=== PATIENT | female | born 1960 | race Caucasian/White ===

== ENCOUNTER → 2016-07-09 | Outpatient (CLI) | payer BC ==
--- NOTE | 2016-07-10 07:45 | MM ---
Reason for exam: additional evaluation requested from abnormal screening. Last mammogram was performed 1 month ago. History: Patient is postmenopausal. Family history of breast cancer in maternal aunt. Benign US breast aspiration single LT of the left breast, July 21, 2014. Benign US biopsy breast VAD LT of the left breast, July 21, 2014. Benign US right guided mammotome of the right breast, July 02, 2006. Benign US right core biopsy of the right breast, May 24, 2005. Ultrasound-guided core biopsy, May 2005. Physical Findings: Nurse did not find any significant physical abnormalities on exam. MG Work Up Mamm w CAD RT ML, CC with magnification, and ML with magnification view(s) were taken of the right breast. Prior study comparison: June 11, 2016, bilateral MG screening mammo w CAD. March 02, 2015, left breast MG diagnostic mammo LT w CAD. Finding: There are intermediate concern, suspicious coarse heterogeneous, grouped/clustered calcifications in the lower inner quadrant, posterior position of the right breast, 6cm from the nipple. These results were verbally communicated with the patient and result sheet given to the patient on 07/09/16. ASSESSMENT: Suspicious, BI-RAD 4 RECOMMENDATION: Surgical consultation and stereotactic core biopsy of the right breast. Called Dr. Pires with mammographic findings and has scheduled an appointment for the patient for 07/24/16 at 3:[address] Brown. PRELIMINARY REPORT CALLED AND FAXED TO DR. RBOWN ON 07/10/16 AT 300/TP.
== END | disposition home or self-care (01) ==
LOC: RADMAMWWP 15:30
PROVIDERS: ATTEND Obstetrics & Gynecology
DX: R92.8 Other abnormal and inconclusive findings on diagnostic imaging of breast (principal)

== ENCOUNTER → 2016-07-30 | Day surgery (SDC) | payer BC ==
[~2016-07-30] MED LIST: ALPRAZolam 0.25 MG TAB ONE; BACITRACIN OINT 1 EACH PACKET TOPICAL ONE; LIDOCAINE 1% INJ 10MG/ML (20 ML MDV) ONE; SODIUM BICARB 4% 5 ML VIAL (0.48 MEQ/ML) ONE
--- NOTE | 2016-07-30 11:04 | MM ---
EXAMINATION TYPE: MG stereo VAD BX RT DATE OF EXAM: 07/30/2016 9:03 AM COMPARISON: 07/09/2016, 06/11/2016 CLINICAL HISTORY: Request for core biopsy stereotactic calcifications right breast TECHNIQUE: Stereotactic guided core biopsy of right breast. FINDINGS: The procedure of stereotactic guided core biopsy was explained to the patient. Benefits, alternatives, and risks were discussed. An informed consent was then obtained. [facility]. Shortness pathway was chosen. Radiologist performed both the localization, and performed the remainder of the procedure. A vacuum assisted biopsy gun was used to obtain multiple core samples. The patient tolerated the procedure well without any immediate complication. The patient was kept in the radiology department for short stay after the procedure and then discharged home in stable condition. Targeted calcifications are identified in specimen mammogram. Post biopsy mammogram shows the clip to appear in satisfactory position relative to the targeted area of concern on the preprocedure images. IMPRESSION: SUCCESSFUL, UNCOMPLICATED STEREOTACTIC GUIDED CORE BIOPSY OF AREA OF CONCERN IN THE right BREAST, FULL PATHOLOGY RESULTS TO FOLLOW. 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 CALCIFICATIONS ARE IDENTIFIED. Recommendation Surgical consult of the right breast. TAD
== END ==
LOC: RADMAMWWP 06:57
PROVIDERS: ATTEND Surgery
DX: C50.911 Malignant neoplasm of unspecified site of right female breast (principal); R92.8 Other abnormal and inconclusive findings on diagnostic imaging of breast; R92.1 Mammographic calcification found on diagnostic imaging of breast
CPT/HCPCS: 88305; 88342; 19081; A4648; J2001

== ENCOUNTER → 2016-08-20 | Outpatient (CLI) | payer BC ==
--- NOTE | 2016-08-21 10:42 | BMR ---
EXAMINATION TYPE: MR breast BILAT wo/w con DATE OF EXAM: 08/20/2016 8:48 PM COMPARISON: Bilateral breast screening mammogram June 11, 2016 BI-RADS 0. Right breast diagnostic mammogram workup July 09, 2016 BI-RADS 4. Positive stereotactic guided core biopsy July 30, 2016 with invasive ductal carcinoma and ductal carcinoma in situ. HISTORY: Right Breast Biopsy with Right side Clips 3 weeks ago Hx of Right Breast Ca. Patient had his tory of left breast benign biopsy and cyst aspiration 2014. Remote right-sided benign breast biopsies . CONTRAST: Multiplanar, multisequence images of the breasts were acquired utilizing 19 mL intravenous MultiHance gadolinium contrast. TECHNIQUE: A series of fat and water weighted images in the long and short axis views of both breasts are obtained in conjunction with dynamic contrast MRI with subtraction technique. Three-dimensional and additional postprocessing imaging is created on independent workstation and reviewed during offi cial interpretation of this study. FINDINGS: There is scattered fibroglandular tissue redemonstrated throughout both breasts. T2-weighte d images show some tiny simple appearing cysts bilaterally, left greater than right. There is mild to moderate slightly asymmetric background enhancement more prominent in left breast versus right breas t. Corresponding to mammogram in the posterior tissue inferiorly near the midline roughly 6:00 positi on there is well-circumscribed rim enhancing nodule. Approximately 1.5 cm immediately anterior to th is there is artifact from biopsy clip identified. No suspicious mass or nonmass enhancement is seen t o correspond to the grouped calcifications on mammogram. There is additional artifact from prior biopsies in the medial anterior right breast. Some scattered foci of enhancement bilaterally are felt to reflect adenosis slightly more prominent in left breast v ersus right breast. There is artifact from biopsy clip anteriorly in the left breast near level of th e nipple noted. No pathologic enhancement is identified. No suspicious skin thickening is seen. No co ncerning axillary adenopathy is seen bilaterally. Benign-appearing axillary lymph nodes are present b ilaterally. No suspicious intramammary adenopathy is identified. A small to moderate size hiatal hernia is incidentally noted. IMPRESSION: No MRI evidence for invasive malignancy in either breast. Artifact from recent biopsy pro [place] carcinoma noted. Rim-enhancing nodule is redemonstrated posterior to this. BI-RADS 6 biopsy-proven cancer right breast. BI-RADS 2 benign findings left breast. Recommendation: Appropriate surgical management for biopsy-proven carcinoma right breast.
== END | disposition home or self-care (01) ==
LOC: RADMRIMAIN 19:29
PROVIDERS: ATTEND Surgery
DX: C50.919 Malignant neoplasm of unspecified site of unspecified female breast (principal)
CPT/HCPCS: 77059; 0159T; A9577

== ENCOUNTER 2016-09-12 10:04 | Day surgery (SDC) | payer BC ==
--- NOTE | 2016-09-06 09:34 | HP ---
DATE OF ADMISSION: 09/12/2016 CHIEF COMPLAINT: Right breast cancer. HISTORY OF PRESENT ILLNESS: Patient is a 56-year-old female who underwent a recent screening mammogram and was found to have a 9 mm lesion associated with 3.8 cm of pleomorphic calcifications. She underwent a stereotactic core biopsy which showed a triple-negative cancer with associated DCIS. Subsequent MRI did not show any residual invasive disease. She had recent BRCA testing because of the triple-negative nature, and that was normal. The patient is interested in breast conservation. She has a family history of breast cancer in an aunt. She was unable to feel a mass. She has had no pain associated with this. PAST MEDICAL HISTORY: 1. Thyroid nodule. 2. Irritable bowel. 3. Hyperlipidemia. 4. Hypothyroidism. PAST SURGICAL HISTORY: 1. Thyroidectomy. 2. Tubal ligation. 3. Carpal tunnel. 4. D&C. 5. Colonoscopy. 6. Ovarian cyst. 7. Tubal ligation reversal. MEDICATIONS: 1. Synthroid. 2. Zocor. 3. Bentyl. ALLERGIES: DENIES. PHYSICAL EXAM: HEENT is normocephalic. Sclerae anicteric. CHEST: No deformities. Right breast without mass or adenopathy, although recent scar noted. Left breast without mass or adenopathy. ABDOMEN: Soft, nontender, nondistended. NEURO: Alert and oriented x3. IMPRESSION: A 56-year-old female with right breast cancer. PLAN: Will proceed with right breast lumpectomy with sentinel lymph node biopsy and wire localization. Margin probe will be utilized as well. Two wires may be required in this case, and this will be discussed with Radiology preoperatively. Risks of bleeding, infection, dimpling, numbness, potential need for additional surgeries including axillary node dissection and/or mastectomy were discussed. Lymphedema and seroma formation were also discussed. The patient is a [employer] and has brought a form into the office today stating that. She vehemently refuses any blood-related products. Associated risk of as it pertains to the inability to provide adequate resuscitation with blood products was discussed, and the patient is aware of this risk.
[2016-09-11 08:54] VITALS: BMI 34.4
[~2016-09-12 10:04] MED LIST changes: -ALPRAZolam 0.25 MG TAB ONE; +ALPRAZolam 0.5 MG TAB PO PRN; -BACITRACIN OINT 1 EACH PACKET TOPICAL ONE; +DEXAMETHASONE SOD PHOSPHATE 10 MG/ML 1 ML VIAL IV ONE; +HEPARIN SODIUM,PORCINE 5,000 UNIT/ML 1 ML VIAL SQ ONE; +LIDOCAINE 1% 20 ML VIAL (10MG/ML) FOR IV START INTRADERMA PRN; -LIDOCAINE 1% INJ 10MG/ML (20 ML MDV) ONE; +MIDAZOLAM 2 MG/2 ML VIAL IV PRN; +Pre Op ABX Message 1 EACH MISC MISCELLANE ONE; +SCOPOLAMINE 1.5MG/72HR PATCH TRANSDERM ONE; -SODIUM BICARB 4% 5 ML VIAL (0.48 MEQ/ML) ONE
[2016-09-12] MEDS: LACTATED RINGERS 1,000 ML IV SCH ×2 (10:38→17:16)
[2016-09-12 11:08] VITALS: RESP 16
[2016-09-12] MEDS ORDERED: LIDOCAINE 1% INJ 10MG/ML (20 ML MDV) SQ ONE (11:20)
[2016-09-12] MEDS ORDERED: SODIUM BICARB 4% 5 ML VIAL (0.48 MEQ/ML) MISCELLANE ONE (11:20)
--- NOTE | 2016-09-12 12:08 | NM ---
EXAMINATION TYPE: NM sentinel node injection DATE OF EXAM: 09/12/2016 12:02 PM COMPARISON: NONE HISTORY: Right-sided breast cancer. TECHNIQUE AND FINDINGS: The procedure of sentinel lymph node injection was explained to the patient. The benefits, alternatives, and risks were discussed. An informed consent was then obtained. Overlying skin is cleaned with sterile alcohol. Lidocaine buffered with bicarbonate was used as anes thetic into the skin and subcutaneous tissue surrounding the nipple. Following this, 546 uCi Tc 99m Filtered Sulfur Colloid was injected into 4 equivalent doses at 12, 3, 6, and 9:00 position surroundi ng the right nipple intradermally. The injection sites were massaged by arrt technologist for 10 minutes after injection. T he patient tolerated the procedure well without any immediate complication. The patient was kept in the radiology department for short stay after the procedure and then taken to surgery for surgical pr ocedure what is presumed intraoperative gamma probe will be used for sentinel lymph node detection. IMPRESSION: Right breast radiotracer injection for sentinel node localization as above.
[2016-09-12] MEDS: ONDANSETRON 4 MG/2 ML VIAL IVP ONE ×2 (12:11→15:21)
[2016-09-12] MEDS ORDERED: PROPOFOL 10 MG/ML 20 ML VIAL IV ONE (12:21)
[2016-09-12] MEDS ORDERED: MIDAZOLAM 2 MG/2 ML VIAL ONE (12:21)
[2016-09-12] MEDS ORDERED: ePHEDrine 50 MG/ML 1 ML AMP ONE (12:21)
[2016-09-12] MEDS ORDERED: fentaNYL (PF) 50 MCG/ML 2 ML AMP ONE (12:21)
[2016-09-12] MEDS ORDERED: SUCCINYLCHOLINE CHLORIDE 100 MG/5 ML SYR IV ONE (12:21)
[2016-09-12] MEDS ORDERED: LIDOCAINE 1% INJ 10MG/ML (20 ML MDV) ONE (12:21)
[2016-09-12] MEDS ORDERED: SODIUM CHLORIDE 0.9% 50 ML with ceFAZolin 2,000 MG IV ONE ×2 (12:36)
[2016-09-12] MEDS ORDERED: METHYLENE BLUE 50 MG/10 ML AMPUL MISCELLANE ONE (12:45)
[2016-09-12] MEDS ORDERED: NALOXONE 0.4 MG/ML 1 ML VIAL IV PRN (14:58)
[2016-09-12] MEDS ORDERED: HYDROcodone/APAP 5-325MG 1 EACH TAB PO PRN (14:58)
--- NOTE | 2016-09-12 15:01 | P.PCN ---
Date of Procedure: 09/12/16 Procedure(s) Performed: PREOPERATIVE DIAGNOSIS: Right breast cancer POSTOPERATIVE DIAGNOSIS: Same PROCEDURE: Right Breast wire localization lumpectomy with sentinel lymph node biopsy and margin probe device SURGEON: Stephanie EBL: Minimal ANESTHESIA: General COMPLICATIONS: None OPERATIVE PROCEDURE: Patient was placed on the operating room table in the supine position. 2 mL of methylene blue was injected into the subareolar space. The breast was then massaged for 5 minutes. The right axilla was addressed at that time. The hot spot in the right axilla was identified. A small curvilinear incision was made using the scalpel. Dissection down through the subcutaneous tissues took place using electrocautery. Using the neoprobe I identified a total of 3 sentinel lymph nodes. 2 of these were blue in color. These were all removed and sent to pathology for close examination. Frozen sections from these lymph nodes were negative for metastatic disease. No bleeding was seen. The subcutaneous tissues were closed using 3-0 Vicryl sutures. The skin was closed using 4-0 Monocryl sutures. The wire entrance site was then addressed. The patient had 2 wires present entering the breast at the 3:00 location directed laterally. A curvilinear incision was made at the 3:00 location. Dissection through the subcutaneous tissues took place removing the breast tissue around the 2 wires. The specimen was marked with 2 sutures short superior and long lateral. I then brooke on the specimen with a black marker 6 different sides. The margin probe device was then utilized. Of the 6 margins all 6 showed some positivity with exception of the deep margin. These 5 margins were then reexcised and sent separately in formalin. The new margin on these 5 new specimens were colored with the appropriate margin color on the new margin side. The initial lumpectomy specimen was also painted using the appropriate color. The clip set up mechanic stamping machines was used to thor the lumpectomy site circumferentially. The clip was confirmed to be within the lumpectomy specimen by radiology. The subcutaneous tissues were closed using 3-0 Vicryl sutures. The skin was closed using a running 4-0 Monocryl stitch. Steri-Strips and sterile dressings were applied. DISPOSITION: Stable to recovery room
[2016-09-12 15:13] VITALS: TEMP 97.6
[2016-09-12] MEDS: HYDROmorphone 1 MG/ML 1 ML SYRINGE IVP PRN ×2 (15:21→15:27)
[2016-09-12] MEDS ORDERED: HYDROcodone/APAP 5-325MG 1 EACH TAB PO ONE (16:28)
[2016-09-12 17:54] VITALS: BP 117/77; PULSE 79
--- NOTE | 2016-09-13 06:38 | MM ---
EXAMINATION TYPE: MG pre op needle loc RT, MG surgical specimen RT DATE OF EXAM: 09/12/2016 12:16 PM COMPARISON: Prior bilateral breast MRI August 20, 2016. Prior mammograms July 30, 2016 and older studies. CLINICAL HISTORY: Biopsy-proven right-sided breast cancer. TECHNIQUE: Needle localization with wire placement and surgical excision of area of concern in the right breast. FINDINGS: The procedure of needle localization with wire placement and than surgical excision was explained to the patient. Benefits, alternatives, and risks were discussed. An informed consent was then obtained. The shortest pathway for procedure was chosen. Shortest pathway was inferior or medial approach. Bracket technique was chosen from medial approach. The overlying skin was prepped and draped in usual sterile fashion. Lidocaine buffered with bicarbonate was used as anesthetic into the skin and subcutaneous tissue up to the level of area of concern. Two 7 cm needle were used. It were placed via a medial approach under mammographic guidance. Subsequent 90 degrees mammogram show the needle to be in satisfactory position relative to the targeted area. Anterior wire was at level of anterior calcifications. Posterior wire was posterior to biopsy clip and enhancing nodule on MRI near posterior aspect of calcifications, tip could not be identified despite multiple attempts at repositioning patient. At this point, wire was placed and the needle was withdrawn. The wire was fixed to patient's skin. Images were marked for surgeon. The patient tolerated the procedure well without any immediate complication. The patient was kept in the radiology department for short stay after the procedure and then taken to surgery for surgical excision. Targeted calcifications , biopsy clip, and wires are identified in specimen mammogram. The patient was kept in hospital for short stay after the procedure and then discharged home in stable condition. IMPRESSION: Successful, uncomplicated needle localization with [wire] placement and surgical excision of suspicious group of calcifications in the right breast , full pathology results to follow. Pathology Results: Malignant A. LYMPH NODE, RIGHT, SENTINEL NODE BIOPSY #1: LYMPH NODE NEGATIVE FOR METASTASIS (CYTOKERATIN 7 AND LOLY IMMUNOSTAINS ARE CONFIRMATORY). B. LYMPH NODE, RIGHT, SENTINEL NODE BIOPSY #2: LYMPH NODE NEGATIVE FOR METASTASIS (CYTOKERATIN 7 AND LOLY IMMUNOSTAINS ARE CONFIRMATORY). C. LYMPH NODE, RIGHT, SENTINEL NODE BIOPSY #3: LYMPH NODE NEGATIVE FOR METASTASIS (CYTOKERATIN 7 AND LOLY IMMUNOSTAINS ARE CONFIRMATORY). D. BREAST, RIGHT, IMAGE GUIDED LOCALIZATION AND BIOPSY: HIGH GRADE DUCT CARCINOMA IN SITU WITH COMEDO NECROSIS AND MICROINVASION. BIOPSY SITE CHANGE/SCAR INVOLVING THE GREEN INKED (INFERIOR) MARGIN OF RESECTION. FIBROCYSTIC CHANGE (STROMAL FIBROSIS, APOCRINE METAPLASIA, CYST FORMATION, ADENOSIS, COLUMNAR CELL CHANGE AND DUCT HYPERPLASIA). E. BREAST, RIGHT ADDITIONAL SUPERIOR MARGIN RESECTION: FIBROCYSTIC CHANGE ( STROMAL FIBROSIS, CYST FORMATION, ADENOSIS, AND MILD DUCT HYPERPLASIA). F. BREAST, RIGHT, ADDITIONAL LATERAL MARGIN RESECTION: FOCAL FIBROSIS WITH FIBROPLASIA SUGGESTIVE OF BIOPSY SITE CHANGE. FIBROCYSTIC CHANGE (STROMAL FIBROSIS, CYST FORMATION, APOCRINE METAPLASIA, ADENOSIS, COLUMNAR CELL CHANGE AND DUCT HYPERPLASIA). FIBROADENOMATOUS HYPERPLASIA/FIBROADENOMA FORMATION. G. BREAST, RIGHT, ADDITIONAL INFERIOR MARGIN RESECTION: INVASIVE DUCTAL CARCINOMA AND DUCT CARCINOMA IN SITU. BIOPSY SITE CHANGE. H. BREAST, RIGHT, ADDITIONAL ANTERIOR MARGIN RESECTION: HIGH GRADE DUCT CARCINOMA IN SITU WITH COMEDO NECROSIS. FIBROCYSTIC CHANGE (STROMAL FIBROSIS, CYST FORMATION, ADENOSIS, APOCRINE METAPLASIA AND DUCT HYPERPLASIA). SCLEROSING LESION. I. BREAST, RIGHT, ADDITIONAL MEDIAL MARGIN RESECTION: BENIGN BREAST WITH FOCAL FIBROSIS AND PROMINENT BACKGROUND ADIPOSE TISSUE AND FOCAL SKELETAL MUSCLE. Recommendation Surgical consult of the right breast. MTDD
== END 2016-09-12 17:35 | disposition home or self-care (01) ==
LOC: OR 10:04
PROVIDERS: ATTEND Surgery
DX: C50.911 Malignant neoplasm of unspecified site of right female breast (principal); D05.11 Intraductal carcinoma in situ of right breast; N64.1 Fat necrosis of breast; N60.11 Diffuse cystic mastopathy of right breast; N60.81 Other benign mammary dysplasias of right breast; N60.21 Fibroadenosis of right breast; N60.91 Unspecified benign mammary dysplasia of right breast; E04.1 Nontoxic single thyroid nodule; E78.5 Hyperlipidemia, unspecified; E03.9 Hypothyroidism, unspecified; Z79.1 Long term (current) use of non-steroidal anti-inflammatories (NSAID); Z79.899 Other long term (current) drug therapy
CPT/HCPCS: 38525; 19301; 88342; 88331; 88307; 88341; 76098; 19281; 38792; A9541; J2250; J1644; J1100; J2405; J2001; J3010; J1170; J0690; J0330; J2704; Q9968

== ENCOUNTER 2016-10-18 09:59 | Day surgery (SDC) | payer BC ==
--- NOTE | 2016-10-02 10:11 | HP ---
DATE OF ADMISSION: 10/18/2016 CHIEF COMPLAINT: Right breast cancer. HISTORY OF PRESENT ILLNESS: The patient is a 56-year-old female who underwent a recent right breast lumpectomy. The patient's pathologic findings revealed negative adenopathy, however, she does have multifocal disease. Patient has done well postoperatively. She and I discussed the postoperative pathologic findings in the office today. PAST MEDICAL HISTORY: Thyroid nodule, irritable bowel syndrome, hyperlipidemia, hypothyroidism. PAST SURGICAL HISTORY: Thyroid, tubal ligation, carpal tunnel D&C, colonoscopy, ovarian cyst, tubal ligation reversal. MEDICATIONS: Synthroid, Zocor, Bentyl. ALLERGIES: None. PHYSICAL EXAM: HEENT is normocephalic. Sclerae nonicteric. Right breast with recent scar, healing nicely mild edema. Mild tenderness. Small seroma in the right axilla. Left breast without masses or adenopathy. Abdomen is soft, nontender, nondistended. IMPRESSION: A 56-year-old female with right breast cancer. PLAN: Will proceed with right simple mastectomy on 10/18/2016. The risks of bleeding, infection seroma formation, flap ischemia were discussed. She understands and wishes to proceed.
[2016-10-17 09:09] VITALS: BMI 34.9
[~2016-10-18 09:59] MED LIST changes: -ALPRAZolam 0.5 MG TAB PO PRN; -LIDOCAINE 1% 20 ML VIAL (10MG/ML) FOR IV START INTRADERMA PRN; +ONDANSETRON 4 MG/2 ML VIAL IVP ONE
[2016-10-18] MEDS ORDERED: LACTATED RINGERS 1,000 ML IV ONE (10:29)
[2016-10-18] MEDS ORDERED: LIDOCAINE 1% 20 ML VIAL (10MG/ML) FOR IV START INTRADERMA ONE (10:30)
[2016-10-18] MEDS ORDERED: PROPOFOL 10 MG/ML 20 ML VIAL IV ONE (11:51)
[2016-10-18] MEDS ORDERED: fentaNYL (PF) 50 MCG/ML 2 ML AMP ONE (11:51)
[2016-10-18] MEDS ORDERED: MIDAZOLAM 2 MG/2 ML VIAL ONE (11:51)
[2016-10-18] MEDS ORDERED: SUCCINYLCHOLINE CHLORIDE 100 MG/5 ML SYR IV ONE (11:51)
[2016-10-18] MEDS ORDERED: LIDOCAINE 1% INJ 10MG/ML (20 ML MDV) ONE (11:51)
[2016-10-18] MEDS ORDERED: GLYCOPYRROLATE 0.2 MG/ML 2 ML VIAL ONE (11:51)
[2016-10-18] MEDS ORDERED: SODIUM CHLORIDE 0.9% 100 ML with ceFAZolin 2,000 MG IV ONE ×2 (12:11)
[2016-10-18] MEDS ORDERED: SODIUM CHLORIDE 0.9% 1,000 ML IV ONE (12:39)
[2016-10-18] MEDS: HYDROmorphone 1 MG/ML 1 ML SYRINGE IVP PRN ×4 (14:10→14:36)
[2016-10-18] MEDS ORDERED: KETOROLAC 30 MG/ML 1 ML VIAL IVP ONE (14:18)
[2016-10-18] MEDS ORDERED: NALOXONE 0.4 MG/ML 1 ML VIAL IV PRN (14:22)
[2016-10-18] MEDS ORDERED: traMADol 50 MG TAB PO PRN (14:22)
[2016-10-18] MEDS ORDERED: HYDROmorphone 1 MG/ML 1 ML SYRINGE IVP PRN (14:22)
[2016-10-18] MEDS ORDERED: ONDANSETRON 4 MG/2 ML VIAL IVP PRN (14:22)
--- NOTE | 2016-10-18 14:31 | P.PCN ---
Date of Procedure: 10/18/16 Procedure(s) Performed: PREOPERATIVE DIAGNOSIS: Right breast cancer POSTOPERATIVE DIAGNOSIS: Same PROCEDURE: Right simple mastectomy SURGEON: Stephanie EBL: 30 mL ANESTHESIA: General COMPLICATIONS: None OPERATIVE PROCEDURE: Patient was placed in the operating table in the supine position. The patient was placed under general anesthesia. The chest was prepped and draped in usual sterile fashion. The skin marker was used to delineate our anticipated incision sites. Incision was a horizontally fashioned elliptical type incision. The superior flap was first addressed. The incision was made using the scalpel. Flaps were raised beneath the skin layer using electrocautery. This took place all the way to the chest wall. Inferior flap was then elevated in a similar fashion. Care was taken to avoid creating too thin of a flap and avoiding ischemia. Once the chest wall was reached the breast was elevated off of the underlying pectoralis muscle using electrocautery. Small vessels were ligated using the Ligaclip. The dissection took place all the way to the latissimus. The specimen was sent to pathology for close examination. The lumpectomy cavity was not entered during the procedure. The subcutaneous tissues were closed using 3-0 Vicryl sutures. Prior to this a channel drain was placed exiting inferiorly. This is sutured to the skin using a 3-0 silk stitch. The skin was then closed using a running 4 -0 Monocryl stitch. Dermabond tape was then utilized along the entire length of the incision. DISPOSITION: Stable to recovery room
[2016-10-18] MEDS ORDERED: IV FLUID CONTINUATION 1,000 ML IV ONE (16:09)
[2016-10-18] MEDS: LACTATED RINGERS 1,000 ML IV SCH (17:31)
[2016-10-18] MEDS: HEPARIN SODIUM,PORCINE 5,000 UNIT/ML 1 ML VIAL SQ SCH ×2 (17:33→23:33)
[2016-10-18] MEDS: HYDROcodone/APAP 5-325MG 1 EACH TAB PO PRN ×2 (20:08→23:32)
[2016-10-19] MEDS: HYDROcodone/APAP 5-325MG 1 EACH TAB PO PRN ×2 (06:29→12:04)
[2016-10-19 08:03] VITALS: BP 103/67; PULSE 59; RESP 14; TEMP 97.8
[2016-10-19] MEDS: HEPARIN SODIUM,PORCINE 5,000 UNIT/ML 1 ML VIAL SQ SCH (08:18)
[2016-10-19] MEDS ORDERED: PANTOPRAZOLE 40 MG/10 ML VIAL IV SCH (09:00)
--- NOTE | 2016-10-19 14:24 | P.DS ---
Providers Expected date of discharge: 10/19/16 Attending physician: Ramsey Brown Primary care physician: Stated None Hospital Course: Patient doing well today post mastectomy. Her mastectomy yesterday was elective. Pain is well-controlled. Drain output is appropriate. Incision is clean and dry without ischemia. Plan is to discharge today with outpatient follow-up in 1 week. Plan - Discharge Summary New Discharge Prescriptions: Hydrocodone/Acetaminophen [[place] 5-325] 1 - 2 each PO Q4HR PRN #30 tab PRN Reason: pain Discharge Medication List Levothyroxine Sodium [Synthroid] 100 mcg PO QAM 04/30/16 [History] Simvastatin [Zocor] 20 mg PO HS 04/30/16 [History] Dicyclomine [Bentyl] 10 mg PO HS 09/11/16 [History] Acetaminophen Tab [Tylenol Tab] 650 mg PO Q6H PRN 10/17/16 [History] Cholecalciferol [Vitamin D3] 3,000 unit PO DAILY 10/17/16 [History] Hydrocodone/Acetaminophen [[place] 5-325] 1 - 2 each PO Q4HR PRN #30 tab 10/18/16 [Rx] Follow up Appointment(s)/Referral(s): Ramsey Brown MD [Medical Doctor] - 1 Week [facility] Visiting Nurse, [NON-STAFF] -
[2016-10-19] MEDS: LACTATED RINGERS 1,000 ML IV SCH (14:38)
== END 2016-10-19 15:07 | disposition home or self-care (01) ==
LOC: OR 09:59 → 6PED 15:22 → 3OBS 15:35 → OR 10-19 15:07
PROVIDERS: ATTEND Surgery
DX: C50.911 Malignant neoplasm of unspecified site of right female breast (principal); N60.31 Fibrosclerosis of right breast; N60.01 Solitary cyst of right breast; N60.81 Other benign mammary dysplasias of right breast; N60.21 Fibroadenosis of right breast; N60.41 Mammary duct ectasia of right breast; D24.1 Benign neoplasm of right breast; N60.91 Unspecified benign mammary dysplasia of right breast; E78.5 Hyperlipidemia, unspecified; K21.9 Gastro-esophageal reflux disease without esophagitis; Z79.899 Other long term (current) drug therapy
CPT/HCPCS: 19303; J2250; J1644 ×2; J1100; J2405; J0690; J2001; J3010; J1885; J1170; J0330; J2704; 88307

== ENCOUNTER → 2017-02-10 | Outpatient (CLI) | payer BC ==
[2017-02-10 11:52] LABS: Blood Urea Nitrogen 14 mg/dL (7-17); Non-African American GFR(MDRD) >60 (>60 ml/min/1.73 sqM)
--- NOTE | 2017-02-10 13:06 | CT ---
EXAMINATION TYPE: CT angio chest DATE OF EXAM: 02/10/2017 COMPARISON: NONE HISTORY: Breast cancer and chest pain CT DLP: 397.8 mGycm. Automated Exposure Control for Dose Reduction was Utilized. CONTRAST: CTA scan of the thorax is performed with IV Contrast, patient injected with 100 mL of Omnipaque 350, pulmonary embolism protocol. MIP Images are created on CT scanner and reviewed. FINDINGS: LUNGS: The lungs are grossly clear, there is no concerning parenchymal mass or nodule identified. Sca ttered areas of subsegmental atelectasis are noted. There is no pleural effusion or pneumothorax see n. The tracheobronchial tree is patent. MEDIASTINUM: There is satisfactory enhancement of the pulmonary artery and its branches, there is no CT evidence for pulmonary embolism. There are no greater than 1 cm hilar or mediastinal lymph nodes. No cardiomegaly or pericardial effusion is seen. OTHER: No additional significant abnormality is seen. Post therapy changes are appreciated of the ri ght breast with surgical clips in the axilla from prior node dissection. Degenerative endplate change s are seen of upper thoracic vertebrae. IMPRESSION: No evidence of pulmonary embolus. New acute cardiopulmonary process.
== END | disposition home or self-care (01) ==
LOC: RADCTMAIN 11:20
PROVIDERS: ATTEND Internal Medicine Hematology & Oncology
DX: C50.811 Malignant neoplasm of overlapping sites of right female breast (principal)
CPT/HCPCS: 82565; 84520; 71275; 36415; Q9967

== ENCOUNTER → 2017-12-31 | Outpatient (CLI) | payer BC ==
--- NOTE | 2018-01-01 08:07 | MM ---
Reason for exam: screening (asymptomatic). Last mammogram was performed 6 months ago. History: Patient is postmenopausal and has history of breast cancer at age 56. Family history of breast cancer in maternal aunt. Malignant MG pre op needle loc RT of the right breast, September 12, 2016. Malignant MG stereo VAD BX RT of the right breast, July 30, 2016. Benign US breast aspiration single LT of the left breast, July 21, 2014. Benign US biopsy breast VAD LT of the left breast, July 21, 2014. Benign US right guided mammotome of the right breast, July 02, 2006. Benign US right core biopsy of the right breast, May 24, 2005. Ultrasound-guided core biopsy, May 2005. Physical Findings: A clinical breast exam by your physician is recommended on an annual basis and results should be correlated with mammographic findings. MG 3D Diag Mammo W/Cad LT CC and MLO view(s) were taken of the left breast. Prior study comparison: June 23, 2017, left breast MG 3d diag mammo w/cad LT. July 09, 2016, right breast MG work up mamm w CAD RT. The breast tissue is heterogeneously dense. This may lower the sensitivity of mammography. Finding: There are typically benign round, grouped/clustered calcifications in the left breast. Previous mammotome biopsy in the left breast. There is no discrete abnormality. These results were verbally communicated with the patient and result sheet given to the patient on 12/31/17. ASSESSMENT: Benign, BI-RAD 2 RECOMMENDATION: Follow-up diagnostic mammogram of the left breast in 1 year.
== END | disposition home or self-care (01) ==
LOC: RADMAMWWP 13:59
PROVIDERS: ATTEND Surgery
DX: Z08 Encounter for follow-up examination after completed treatment for malignant neoplasm (principal); Z85.3 Personal history of malignant neoplasm of breast
CPT/HCPCS: 77061; 77065

== ENCOUNTER → 2019-01-04 | Outpatient (CLI) | payer BC ==
--- NOTE | 2019-01-04 10:20 | MM ---
Reason for exam: additional evaluation requested from prior study. Last mammogram was performed 1 year ago. History: Patient is postmenopausal and has history of breast cancer at age 56. Family history of breast cancer in maternal aunt. Malignant MG pre op needle loc RT of the right breast, September 12, 2016. Malignant MG stereo VAD BX RT of the right breast, July 30, 2016. Benign US breast aspiration single LT of the left breast, July 21, 2014. Benign US biopsy breast VAD LT of the left breast, July 21, 2014. Benign US right guided mammotome of the right breast, July 02, 2006. Benign US right core biopsy of the right breast, May 24, 2005. Ultrasound-guided core biopsy, May 2005. Physical Findings: Nurse did not find any significant physical abnormalities on exam. MG 3D Diag Mammo W/Cad LT CC and MLO view(s) were taken of the left breast. Prior study comparison: December 31, 2017, left breast MG 3d diag mammo w/cad LT. June 23, 2017, left breast MG 3d diag mammo w/cad LT. The breast tissue is heterogeneously dense. This may lower the sensitivity of mammography. Benign appearing calcifications in the left breast. No suspicious abnormality. Left biopsy marker noted. No significant new findings when compared with previous films. These results were verbally communicated with the patient and result sheet given to the patient on 01/04/19. ASSESSMENT: Benign, BI-RAD 2 RECOMMENDATION: Follow-up diagnostic mammogram of the left breast in 1 year.
== END | disposition home or self-care (01) ==
LOC: RADMAMWWP 08:50
PROVIDERS: ATTEND Obstetrics & Gynecology
DX: Z08 Encounter for follow-up examination after completed treatment for malignant neoplasm (principal); Z85.3 Personal history of malignant neoplasm of breast
CPT/HCPCS: 77061; 77065

== ENCOUNTER → 2020-01-06 | Outpatient (CLI) | payer BC ==
--- NOTE | 2020-01-06 13:41 | MM ---
Reason for exam: additional evaluation requested from prior study. Last mammogram was performed 1 year ago. History: Patient is postmenopausal and has history of breast cancer at age 56. Family history of breast cancer in paternal cousin and breast cancer in maternal aunt. Malignant MG pre op needle loc RT of the right breast, September 12, 2016. Malignant MG stereo VAD BX RT of the right breast, July 30, 2016. Benign US breast aspiration single LT of the left breast, July 21, 2014. Benign US biopsy breast VAD LT of the left breast, July 21, 2014. Benign US right guided mammotome of the right breast, July 02, 2006. Benign US right core biopsy of the right breast, May 24, 2005. Ultrasound-guided core biopsy, May 2005. Mastectomy of the right breast. Physical Findings: Nurse did not find any significant physical abnormalities on exam. MG 3D Diag Mammo W/Cad LT CC and MLO view(s) were taken of the left breast. Prior study comparison: January 04, 2019, left breast MG 3d diag mammo w/cad LT. December 31, 2017, left breast MG 3d diag mammo w/cad LT. There are scattered fibroglandular densities. Previous mammotome biopsy in the left breast. There is chronic nodularity in the left breast. No significant new findings when compared with previous films. These results were verbally communicated with the patient and result sheet given to the patient on 01/06/20. ASSESSMENT: Benign, BI-RAD 2 RECOMMENDATION: Follow-up diagnostic mammogram of the left breast in 1 year.
== END | disposition home or self-care (01) ==
LOC: RADMAMWWP 11:47
PROVIDERS: ATTEND Obstetrics & Gynecology
DX: Z85.3 Personal history of malignant neoplasm of breast (principal)
CPT/HCPCS: 77061; 77065

== ENCOUNTER → 2020-09-08 | Outpatient (CLI) | payer BC ==
--- NOTE | 2020-09-10 09:02 | CT ---
EXAMINATION TYPE: CT ChestAbdPelvis w con DATE OF EXAM: 09/08/2020 COMPARISON: Whole body bone scan same-day. CTA chest February 10, 2017. CT abdomen July 08, 2013 HISTORY: Right-sided breast cancer diagnosed and treated 2016, new onset pain worsened back CT DLP: 1763 mGycm. Automated Exposure Control for Dose Reduction was Utilized. CONTRAST: CT scan of the thorax, abdomen and pelvis is performed with oral and with IV Contrast, patient inject ed with 100 ml mL of Isovue 300. FINDINGS: LUNGS: The lungs remain grossly clear, there is no concerning new parenchymal mass or nodule identifi ed. There is no pleural effusion or pneumothorax seen. The tracheobronchial tree is patent. MEDIASTINUM: There are no new greater than 1 cm hilar or mediastinal lymph nodes. No cardiomegaly o r pericardial effusion is seen. OTHER: Right breast remains surgically absent. Right-sided surgical clips redemonstrated. Stable left sided dystrophic calcification or clip with focal fibroglandular tissue near image 19. LIVER/GB: No significant abnormality is appreciated. PANCREAS: No significant abnormality is seen. SPLEEN: No significant abnormality is seen. ADRENALS: No significant abnormality is seen. KIDNEYS: No significant abnormality is seen. BOWEL: Oral contrast reaches the level of the cecum. No suspicious small or large bowel dilatation. GENITAL ORGANS: No gross abnormality seen. LYMPH NODES: No greater than 1cm abdominal or pelvic lymph nodes are appreciated. OSSEOUS STRUCTURES: Incidental stable hemangioma involving T7 vertebra. S-shaped scoliotic curvature. No suspicious focal osseous lesions. Spinal canal preserved. Pktk-ws-[id number] axial joint space loss in both hips. OTHER: No significant additional abnormality is seen. IMPRESSION: No suspicious new mass or adenopathy to suggest active neoplastic recurrence. Source of p atient's new pain not identified.
--- NOTE | 2020-09-10 09:03 | NM ---
EXAMINATION TYPE: NM bone scan whole body DATE OF EXAM: 09/08/2020 COMPARISON: Same day for body CT. HISTORY: History of right-sided breast cancer diagnosed 2017 with new back pain. Delayed whole-body scanning was performed following the injection of 22.5 mCi Tc 99m MDP. Images acq uired 3 hours post injection. Whole body images in anterior posterior projection along with spot imag es of the thorax abdomen and upper pelvis in multiple projections. FINDINGS: No scintigraphic uptake of abnormal increased radiotracer uptake to suggest osseous metastatic diseas e. Mild uptake bilateral knee joints consistent with product of degenerative change. IMPRESSION: As above.
== END ==
LOC: RADNMMAIN 10:44
PROVIDERS: ATTEND Internal Medicine Hematology & Oncology
DX: M54.5 Low back pain (principal); Z85.3 Personal history of malignant neoplasm of breast
CPT/HCPCS: 71260; 74177; 78306; A9503; Q9967

== ENCOUNTER → 2021-01-09 | Outpatient (CLI) | payer BC ==
--- NOTE | 2021-01-11 08:56 | MM ---
Reason for exam: additional evaluation requested from prior study. Last mammogram was performed 1 year ago. History: Patient is postmenopausal and has history of breast cancer at age 56. Family history of breast cancer in paternal cousin and breast cancer in maternal aunt. Malignant MG pre op needle loc RT of the right breast, September 12, 2016. Malignant MG stereo VAD BX RT of the right breast, July 30, 2016. Benign US breast aspiration single LT of the left breast, July 21, 2014. Benign US biopsy breast VAD LT of the left breast, July 21, 2014. Benign US right guided mammotome of the right breast, July 02, 2006. Benign US right core biopsy of the right breast, May 24, 2005. Ultrasound-guided core biopsy, May 2005. Mastectomy of the right breast. Physical Findings: Nurse did not find any significant physical abnormalities on exam. MG 3D Diag Mammo W/Cad LT CC, MLO, and XCCL view(s) were taken of the left breast. Prior study comparison: January 06, 2020, left breast MG 3d diag mammo w/cad LT. January 04, 2019, left breast MG 3d diag mammo w/cad LT. Left 8mm noduled at 1-2 o'clock, 3cm from nipple. Group of nodules inferior, 4cm from nipple. These results were verbally communicated with the patient and result sheet given to the patient on 01/09/21. ASSESSMENT: Incomplete: need additional imaging evaluation, BI-RAD 0 RECOMMENDATION: Ultrasound of the left breast.
--- NOTE | 2021-01-11 09:00 | USB ---
Reason for exam: additional evaluation requested from abnormal screening. History: Patient is postmenopausal and has history of breast cancer at age 56. Family history of breast cancer in paternal cousin and breast cancer in maternal aunt. Malignant MG pre op needle loc RT of the right breast, September 12, 2016. Malignant MG stereo VAD BX RT of the right breast, July 30, 2016. Benign US breast aspiration single LT of the left breast, July 21, 2014. Benign US biopsy breast VAD LT of the left breast, July 21, 2014. Benign US right guided mammotome of the right breast, July 02, 2006. Benign US right core biopsy of the right breast, May 24, 2005. Ultrasound-guided core biopsy, May 2005. Mastectomy of the right breast. US Breast Limited LT Left limited breast ultrasound including focal area of concern, retroareolar and axilla demonstrates a 8 x 5 x 7mm oval, cystic lesion at 2 o'clock, correlates with mammographic nodule, a 4 x 3mm oval, cystic cluster at 8 o'clock, cluster of cysts, probably benign and a 8 x 5 x 7mm oval, mixed, hypoechoic lesion at 3 o'clock, 8 x 5mm complex cystic/solid nodule, suspicious, biopsy/aspiration recommended. These results were verbally communicated with the patient and result sheet given to the patient on 01/09/21. ASSESSMENT: Suspicious, BI-RAD 4 RECOMMENDATION: Ultrasound core biopsy of the left breast. (3 'clock) Called Dr. Rosenbaum's office with mammographic findings. Biopsy scheduled for 01/24/21 at 7:00. PRELIMINARY REPORT CALLED AND FAXED TO DR. ROSENBAUM ON 01/11/21. Follow-up diagnostic mammogram and ultrasound of the left breast in 6 months.
== END | disposition home or self-care (01) ==
LOC: RADMAMWWP 10:45
PROVIDERS: ATTEND Internal Medicine Hematology & Oncology
DX: R92.8 Other abnormal and inconclusive findings on diagnostic imaging of breast (principal); N63.21 Unspecified lump in the left breast, upper outer quadrant; Z85.3 Personal history of malignant neoplasm of breast; Z90.11 Acquired absence of right breast and nipple; Z80.3 Family history of malignant neoplasm of breast
CPT/HCPCS: 77061; 77065

== ENCOUNTER → 2021-01-24 | Day surgery (SDC) | payer BC ==
[2021-01-24 07:12] VITALS: RESP 16; TEMP 97.9
[2021-01-24 08:30] VITALS: BP 121/75; PULSE 88
--- NOTE | 2021-01-24 08:57 | USB ---
EXAMINATION TYPE: US biopsy breast VAD LT, MG diagnostic mammo LT wo CAD DATE OF EXAM: 01/24/2021 CLINICAL HISTORY: R92.8 abnormal mammogram. TECHNIQUE: Ultrasound guided core biopsy of left breast. COMPARISON: 01/09/2021 FINDINGS: The procedure of ultrasound guided core biopsy was explained to the patient. Benefits, alt ernatives, and risks were discussed. An informed consent was then obtained. The patient was placed in supine positioning for imaging and for the procedure. The overlying skin w as prepped and draped in usual sterile fashion. Lidocaine buffered with bicarbonate was used as anes thetic into the skin and subcutaneous tissue up to area of concern in the left breast. A latia was ma de with surgical scalpel. Under ultrasound guidance, a 12-gauge vacuum assisted biopsy gun device was used to obtain 4 core sa mples. Following this, a biopsy clip was left in lesion. Biopsy clip was confirmed in the left [address]ishna st on postprocedure mammogram. The patient tolerated the procedure well without any immediate complication. The patient was kept in the radiology department for short stay after the procedure and then discharged home in stable condi tion. IMPRESSION: Successful, uncomplicated ultrasound guided core biopsy of area of concern in the left br east, full pathology results to follow.
== END ==
LOC: RADUSWWP 06:58
PROVIDERS: ATTEND Internal Medicine Hematology & Oncology
DX: N60.12 Diffuse cystic mastopathy of left breast (principal)
CPT/HCPCS: 88305; 77065; 19083; A4648; J2001

== ENCOUNTER → 2021-02-02 | Outpatient (CLI) | payer BC ==
--- NOTE | 2021-02-02 11:15 | XR ---
EXAMINATION TYPE: XR lumbar spine 2 or 3V DATE OF EXAM: 02/02/2021 CLINICAL HISTORY: pain TECHNIQUE: Three views of the lumbar spine are submitted. COMPARISON: None. FINDINGS: There are 5 lumbar type vertebral bodies identified. The lumbar spine shows satisfactory alignment w ithout evidence of acute fracture or dislocation. Vertebral body heights are within normal limits. Moderate multilevel degenerative disc disease and spondylosis. Lower lumbar facet joint arthropathy. The overlying soft tissue appears unremarkable. IMPRESSION: No acute fracture or dislocation is seen in the lumbar spine. ICD 10 NO FRACTURE, INITIAL EVALUATION
== END | disposition home or self-care (01) ==
LOC: RADXRMAIN 10:33
PROVIDERS: ATTEND Internal Medicine
DX: M54.5 Low back pain (principal)
CPT/HCPCS: 72100

== ENCOUNTER → 2021-02-20 | Outpatient (CLI) | payer BC ==
--- NOTE | 2021-02-20 15:55 | US ---
EXAMINATION TYPE: US kidneys/renal and bladder DATE OF EXAM: 02/20/2021 COMPARISON: CT 2020 CLINICAL HISTORY: R10.9 flank pain. Right flank and back pain x 5 months, microscopic hematuria EXAM MEASUREMENTS: Right Kidney: 9.7 x 5.2 x 5.0 cm Left Kidney: 9.6 x 5.4 x 5.2 cm Right Kidney: No hydronephrosis or masses seen Left Kidney: No hydronephrosis or masses seen Bladder: wnl Bilateral Jets seen: yes There is no evidence for hydronephrosis at this point in time. No nephrolithiasis is seen. No viviana s are identified. The urinary bladder is satisfactorily distended. Bilateral ureteral jets are seen . IMPRESSION: Unremarkable study.
== END | disposition home or self-care (01) ==
LOC: RADUSWWP 15:22
PROVIDERS: ATTEND Internal Medicine
DX: R10.9 Unspecified abdominal pain (principal)
CPT/HCPCS: 76770

== ENCOUNTER → 2022-02-08 | Outpatient (CLI) | payer BC ==
--- NOTE | 2022-02-12 13:45 | MM ---
Reason for Exam: Hx of breast cancer, mastectomy. Last screening mammogram was performed 6 month(s) ago. Patient History: Menarche at age 12. First Full-Term at age 16. Postmenopausal. Breast cancer, right, age 56. Previous chemotherapy at age 56. 05/2005, Ultrasound-Guided Core Biopsy. Mastectomy on the Right side. 01/24/2021, Benign Core Biopsy on the left side. 09/12/2016, Malignant Core Biopsy on the right side. 07/30/2016, Malignant Core Biopsy on the right side. 07/21/2014, Benign Cyst Aspiration on the left side. 07/21/2014, Benign Core Biopsy on the left side. 07/02/2006, Benign Core Biopsy on the right side. 05/24/2005, Benign Core Biopsy on the right side. Paternal cousin had breast cancer at or over age 50. Maternal aunt had breast cancer at or over age 50. Prior Study Comparison: 01/09/2021 Left Diagnostic Mammogram, [facility]. 01/24/2021 Left Diagnostic Mammogram, [facility]. 08/27/2021 Left Diagnostic Mammogram, [facility]. Tissue Density: Left: There are scattered fibroglandular densities. Findings: Analyzed By CAD. There are 2 mammotome biopsy clips centrally anterior depth left breast redemonstrated. A few benign-appearing grouped calcifications anteriorly in the left breast are redemonstrated. No new mass or suspicious cluster of microcalcification in the left breast. Overall Assessment: Benign, BI-RAD 2 Management: Screening Mammogram of the left breast. Return to routine follow-up. Results were given to the patient verbally at the time of exam. Electronically signed and approved by: Sanket Chavira M.D.
== END | disposition home or self-care (01) ==
LOC: RADMAMWWP 12:50
PROVIDERS: ATTEND Internal Medicine Hematology & Oncology
DX: C50.811 Malignant neoplasm of overlapping sites of right female breast (principal)
CPT/HCPCS: 77061; 77065

== ENCOUNTER → 2022-08-05 | Outpatient (CLI) | payer BC ==
--- NOTE | 2022-08-05 11:39 | CA ---
Exercise Nuclear Stress Test Report Name: Virgen Coleman Exam Date: 08/05/2022 09:26 Exam Location: [place] Stress Ht (in): 65 Wt (lb): 223 BSA: 2.07 Ordering Phys: Froylan Rinadli MD Referring Phys: MUKESH, Technologist: Gen Nicholas Age: 62 Gender: F : 1960 Procedure CPT: Indications: I20.9 angina pectoris ICD-10 Codes: Patient History: Chest pain and palpitations Medications: Meds past 24 hrs: Pretest Chest Pain: STRESS TEST [place] Protocol Exercise Duration (min:sec): 06:[address] Depressions (mm): Angina Score: Saucedo Score: Resting HR (bpm): 71 Peak HR (bpm): 143 Resting BP (mmHg): 136 / 73 Peak BP (mmHg): 154 / 92 MPHR: 158 Target HR: 134 % MPHR: 91 METS: 7.1 Total Dose: Peak Dose: Atropine: Double Product: 21202 BP Response: Stress Termination: Reached target heart rate Stress Symptoms: No chest pain or symptoms Stress Summary: ECG ANALYSIS Resting ECG: Stress ECG: CONCLUSIONS Excellent exercise tolerance. The patient exercised for 6 minutes and 40 seconds Excellent augmentation in the blood pressure and heart rate in response to exercise Normal EKG in response to exercise Dr. Jalil Culver MD (Electronically Signed) Final Date: 05 August 2022 11:38
--- NOTE | 2022-08-05 12:14 | NM ---
EXAMINATION TYPE: NM stress cardiolite complete DATE OF EXAM: 08/05/2022 COMPARISON: NONE HISTORY: Angina pectoris TECHNIQUE: After the intravenous administration of 9.6 mCi Tc 99m Sestamibi - Rest images obtained 4 5 minutes post injection. The patient exercised using a RED protocol and 1 minute prior to peak e xercise was injected with 24.6 mCi Tc 99m Sestamibi - Stress images obtained 45 minutes post injectio n. FINDINGS: 91% of target heart rate achieved. Review of stress and rest SPECT images demonstrates small fixed de fect within the cardiac apex with inferior wall artifact. No definitive reversibility identified. Gat ed analysis shows normal wall motion with an estimated left ventricular ejection fraction of 62 %. TI D is within normal limits measuring 0.56. IMPRESSION: Small fixed defect within the cardiac apex without definitive reversibility identified.
== END | disposition home or self-care (01) ==
LOC: RADNMMAIN 07:46
PROVIDERS: ATTEND Internal Medicine
DX: I20.9 Angina pectoris, unspecified (principal)
CPT/HCPCS: 93017; 78452; A9500

== ENCOUNTER → 2023-02-10 | Outpatient (CLI) | payer BC | END | disposition home or self-care (01) | LOC: RADMAMWWP 09:40 | PROVIDERS: ATTEND Surgery | DX: Z53.9 Procedure and treatment not carried out, unspecified reason (principal) ==

== ENCOUNTER → 2023-02-10 | Outpatient (CLI) | payer BC ==
--- NOTE | 2023-02-10 10:15 | MM ---
Reason for Exam: Hx of breast cancer, mastectomy. Last screening mammogram was performed 12 month(s) ago. Patient History: Menarche at age 12. First Full-Term at age 16. Postmenopausal. Breast cancer, right, age 56. Previous chemotherapy at age 56. 2017, Mastectomy on the Right side. 05/2005, Ultrasound-Guided Core Biopsy. Mastectomy on the Right side. 01/24/2021, Benign Core Biopsy on the left side. 09/12/2016, Malignant Core Biopsy on the right side. 07/30/2016, Malignant Core Biopsy on the right side. 07/21/2014, Benign Cyst Aspiration on the left side. 07/21/2014, Benign Core Biopsy on the left side. 07/02/2006, Benign Core Biopsy on the right side. 05/24/2005, Benign Core Biopsy on the right side. 2017, Chemotherapy. Paternal cousin had breast cancer at or over age 50. Maternal aunt had breast cancer at or over age 50. Prior Study Comparison: 01/24/2021 Left Diagnostic Mammogram, [facility]. 08/27/2021 Left Diagnostic Mammogram, [facility]. 02/08/2022 Left MG 3D diag mammo w/cad LT, [facility]. Tissue Density: Left: There are scattered fibroglandular densities. Findings: Analyzed By CAD. Postsurgical changes left breast and multiple biopsy clips. No new suspicious masses, calcifications or distortions. Overall Assessment: Benign, BI-RAD 2 Management: Screening Mammogram of the left breast in 1 year. Results were given to the patient verbally at the time of exam. Patient should continue monthly self-breast exams. A clinical breast exam by your physician is recommended on an annual basis. This exam should not preclude additional follow-up of suspicious palpable abnormalities. Note on Yvonne scores and lifetime risk: 1. A Yvonne score greater than 3% is considered moderate risk. If this is the case, consider specialist referral to assess eligibility for a risk reducing agent. 2. If overall lifetime risk for the development of breast cancer is 20% or higher, the patient may qualify for future screening with alternating mammogram and breast MRI. Electronically signed and approved by: Danie Cat DO
--- NOTE | 2023-02-10 13:59 | BD ---
EXAMINATION TYPE: Axial Bone Density DATE OF EXAM: 02/10/2023 CLINICAL HISTORY: 62 years old Female. ICD-10 CODE: N95.1 POST MENOPUASAL Height: 65 Weight: 223.4 FRAX RISK QUESTIONS: Alcohol (3 or more units per day): no Family History (Parent hip fracture): no Glucocorticoids (More than 3mos): no History of Fracture in Adulthood: wrist Secondary Osteoporosis: 1. Type 1 Diabetes: no 2. Hyperthyroidism: no 3. Menopause before 45: yes 4. Malnutrition: no 5. Chronic liver disease: no Rheumatoid Arthritis: no Current Tobacco Use: no RISK FACTORS HISTORY OF: Hip Fracture (Right/Left): no Spine Fracture: no History of Wrist Fracture: lt wrist When: age 58 Surgery to Spine/Hip(right/left)/Wrist (right/left): no Family History of Osteoporosis: no Active: no Diet low in dairy products/other sources of calcium: yes Postmenopausal woman: yes Take estrogen and/or progesterone medications: no Lost more than 2 inches in height since high school: no Frequent falls: no Poor Health: no Hyperparathyroidism: no Adrenal Insufficiency: no MEDICATIONS: Prednisone or other steroids: no Thyroid Medications: Synthyroid How Long: past 10 years Osteoporosis Medications: no Additional Medications: Cholesterol Meds, Vit D, Additional History: Breast Ca. 2017 with Chemo EXAM MEASUREMENTS: Bone mineral densitometry was performed using the [employer]. Bone mineral density as measured about the Lumbar spine is: ----- L1-L4(G/cm2): 1.184 T Score Values are as follows: ----- L1: -0.8 ----- L2: 0.0 ----- L3: 0.3 ----- L4: 0.1 ----- L1-L4: 0.0 Z Score Values are as follows: ----- L1: -0.5 ----- L2: 0.3 ----- L3: 0.5 ----- L4: 0.4 ----- L1-L4: 0.3 Bone mineral density has: decreased -0.3 % since study of: 07/04/20 Bone mineral density about the R hip (g/cm2): 0.964 Bone mineral density about the L hip (g/cm2): 1.031 T Score values are as follows: -----R Neck: -0.4 -----L Neck: -0.5 -----R Total: -0.3 -----L Total: 0.2 Z Score values are as follows: -----R Neck: 0.2 -----L Neck: 0.1 -----R Total: -0.1 -----L Total: 0.4 Bone mineral density has: decreased -3.4 % since study of: 07/04/2014 FRAX%s: The graph provided illustrates a 10.8% chance for a major osteoporotic fx and a 0.4% chance f or the hips probability for fx in 10 years time. IMPRESSION: Normal (Values between +1 and -1 indicate normal bone mass). Consider repeating this study in 5 year s or sooner if there is some new clinical indication. NOTE: T-SCORE=SD OF THE YOUNG ADULT MEAN.
== END | disposition home or self-care (01) ==
LOC: RADBDWWP 09:32
PROVIDERS: ATTEND Obstetrics & Gynecology
DX: R92.8 Other abnormal and inconclusive findings on diagnostic imaging of breast (principal); Z78.0 Asymptomatic menopausal state; Z80.3 Family history of malignant neoplasm of breast; Z85.3 Personal history of malignant neoplasm of breast; Z90.11 Acquired absence of right breast and nipple
CPT/HCPCS: 77061; 77065; 77080

== ENCOUNTER → 2024-03-26 | Outpatient (CLI) | payer BC ==
--- NOTE | 2024-03-26 10:32 | MM ---
Reason for Exam: Hx of breast cancer, mastectomy. Last mammogram was performed 1 year(s) and 1 month(s) ago. Patient History: Menarche at age 12. First Full-Term at age 16. Postmenopausal. Breast cancer, right, age 56. Previous chemotherapy at age 56. 2017, Mastectomy on the Right side. 05/2005, Ultrasound-Guided Core Biopsy. Mastectomy on the Right side. 01/24/2021, Benign Core Biopsy on the left side. 09/12/2016, Malignant Core Biopsy on the right side. 07/30/2016, Malignant Core Biopsy on the right side. 07/21/2014, Benign Cyst Aspiration on the left side. 07/21/2014, Benign Core Biopsy on the left side. 07/02/2006, Benign Core Biopsy on the right side. 05/24/2005, Benign Core Biopsy on the right side. 2017, Chemotherapy. Paternal cousin had breast cancer, age 55. Maternal aunt had breast cancer, age 70. Prior Study Comparison: 06/23/2017 Left Diagnostic Mammogram, [facility]. 12/31/2017 Left Diagnostic Mammogram, [facility]. 01/04/2019 Left Diagnostic Mammogram, [facility]. 01/06/2020 Left Diagnostic Mammogram, [facility]. 01/09/2021 Left Diagnostic Mammogram, [facility]. 01/24/2021 Left Diagnostic Mammogram, [facility]. 08/27/2021 Left Diagnostic Mammogram, [facility]. 02/08/2022 Left MG 3D diag mammo w/cad LT, [facility]. 02/10/2023 Left MG 3D diag mammo w/cad LT, [facility]. Tissue Density: Left: There are scattered areas of fibroglandular density. Findings: Analyzed By CAD. The pattern is stable. Chronic nodularity is within the left breast. 2 core markers are within the left breast. No suspicious groups of microcalcifications, spiculated or lobular masses, architectural distortion or other secondary signs of malignancy are mammographically apparent. Overall Assessment: Benign, BI-RAD 2 Management: Screening Mammogram of the left breast in 1 year. A negative mammogram report should not preclude additional follow up of suspicious palpable abnormalities. Patient should continue monthly self breast exam. A clinical breast exam by your physician is recommended on an annual basis and results should be correlated with mammographic findings. Note on Yvonne scores and lifetime risk: 1. A Yvonne score greater than 3% is considered moderate risk. If this is the case, consider specialist referral to assess eligibility for a risk reducing agent. 2. If overall lifetime risk for the development of breast cancer is 20% or higher, the patient may qualify for future screening with alternating mammogram and breast MRI. [facility], , 03/26/2024 10:29 AM. Electronically signed and approved by: Gera Florentino D.O. Radiologis
== END | disposition home or self-care (01) ==
LOC: RADMAMWWP 10:00
PROVIDERS: ATTEND Surgery
DX: Z85.3 Personal history of malignant neoplasm of breast
CPT/HCPCS: 77061; 77065